=== PATIENT | female | born 2000 | race Caucasian/White ===

== ENCOUNTER 2020-10-22 11:21 | Emergency (ER) | payer MEDICAID ==
[~2020-10-22] VITALS: Ht 167.6 cm; Wt 75.0 kg
[2020-10-22 11:55] LABS: MEAN CORPUSCULAR HEMOGLOBIN 29.6 pg (28.0-32.0); MEAN CORPUSCULAR VOLUME 86.6 fL (81.0-99.0); MEAN PLATELET VOLUME 9.2 fl (7.4-10.4); PLATELET 303 x1000/uL (130-400); RED BLOOD CELL COUNT 4.39 mill/uL (4.2-5.4); RED CELL DISTRIBUTION WIDTH 13.2 % (11.6-14.6)
[2020-10-22 12:00] LABS: CHLORIDE 105 mEq/L (98-107)
[2020-10-22] MEDS ORDERED: ACETAMINOPHEN 325MG TABLET PO PRN (12:00)
[2020-10-22 12:25] LABS: B-HCG QUANTITATIVE 26826 mIU/mL (<3)
[2020-10-22 12:35] LABS: PLATELET ESTIMATE NORMAL
[2020-10-22 12:38] LABS: CLARITY URINE CLOUDY (CLEAR); COLOR URINE DARK YELLOW (YELLOW); KETONES URINE 4+ (NEGATIVE); LEUKOCYTE ESTERASE URINE TRACE (NEGATIVE); NITRITE URINE NEGATIVE (NEGATIVE); OCCULT BLOOD URINE NEGATIVE (NEGATIVE); PH URINE 6.5 (4.5-8.0); PROTEIN URINE 2+ (NEGATIVE); SPECIFIC GRAVITY URINE 1.037 (1.005-1.030)
[2020-10-22] MEDS ORDERED: ONDA4TAB5 MT (14:17)
[2020-10-22] MEDS ORDERED: ONDANSETRON HCL 4MG/2ML INJ IV ONE (14:45)
[2020-10-22 14:59] VITALS: BP 121/75
== END 2020-10-22 15:01 | disposition home or self-care (01) ==
LOC: ER 11:21
DX: O26.892 Other specified pregnancy related conditions, second trimester (principal); I49.9 Cardiac arrhythmia, unspecified; R10.30 Lower abdominal pain, unspecified; Z3A.18 18 weeks gestation of pregnancy
CPT/HCPCS: 36415; 76805; 76817; 80053; 81003; 81025; 84702; 85025; 86850; 86900; 86901; 93005; 96374; 99285; J2405; Z7610